=== PATIENT | male | born 1990 | race Caucasian/White ===

== ENCOUNTER 2018-01-27 11:43 | Emergency (ER) | payer SELFPAY ==
[2018-01-27 12:14] VITALS: BP 141/85
--- NOTE | 2018-01-27 12:36 | UC ---
Throat Pain/Nasal Zaheer HPI - HPI Summary HPI Summary: Pt c/o sore throat, chills, ZACARIAS, malaise, nausea and vomiting X 5 days. Pt does not have health insurance and is requesting to not have throat swab. Pt has positive history of mono. - History of Current Complaint Chief Complaint: UCRespiratory Stated Complaint: ST,COUGH,ZACARIAS Time Seen by Provider: 01/27/18 12:23 Hx Obtained From: Patient Onset/Duration: Sudden Onset, Lasting Days, Still Present, Worse Since - onset Severity: Severe Pain Intensity: 9 Associated Signs & Symptoms: Positive: Dysphagia - Epiglottits Risk Factors Epiglottis Risk Factors: Negative - Allergies/Home Medications Allergies/Adverse Reactions: Allergies Allergy/AdvReac Type Severity Reaction Status Date / Time No Known Allergies Allergy Verified 01/27/18 12:09 PMH/Surg Hx/FS Hx/Imm Hx Previously Healthy: Yes - Surgical History Surgical History: Yes Surgery Procedure, Year, and Place: b/l thumbs. appy. Left knee - Family History Known Family History: Positive: Cardiac Disease - Social History Occupation: Employed Full-time Lives: With Family Alcohol Use: None Substance Use Type: None Smoking Status (MU): Light Every Day Tobacco Smoker Type: Cigarettes Amount Used/How Often: 1-2 cigs/day Have You Smoked in the Last Year: Yes Review of Systems Constitutional: Chills, Fatigue Skin: Negative Eyes: Negative ENT: Sore Throat Respiratory: Negative Cardiovascular: Negative Gastrointestinal: Negative Genitourinary: Negative Motor: Negative Neurovascular: Negative Musculoskeletal: Myalgia Neurological: Headache Psychological: Negative Is Patient Immunocompromised?: No All Other Systems Reviewed And Are Negative: Yes Physical Exam Triage Information Reviewed: Yes Appearance: Ill-Appearing Vital Signs: Initial Vital Signs Temp 97.3 F 01/27/18 12:10 Pulse 85 01/27/18 12:10 Resp 16 01/27/18 12:10 BP 141/85 01/27/18 12:10 Pulse Ox 98 01/27/18 12:10 Vital Signs Reviewed: Yes Eye Exam: Normal ENT Exam: Other ENT: Positive: Tonsillar swelling, Tonsillar exudate Dental Exam: Normal Neck exam: Normal Respiratory Exam: Normal Cardiovascular Exam: Normal Musculoskeletal Exam: Normal Neurological Exam: Normal Psychological Exam: Normal Skin Exam: Normal Throat Pain/Nasal Course/Dx - Differential Dx/Diagnosis Differential Diagnosis/HQI/PQRI: Mononucleosis, Pharyngitis, Tonsillitis Provider Diagnoses: Tonsillitis Discharge - Sign-Out/Discharge Documenting (check all that apply): Discharge/Admit/Transfer - Discharge Plan Condition: Stable Disposition: HOME Prescriptions: Cephalexin CAP* [Keflex 500 CAP*] 500 mg PO Q6H #40 cap Ibuprofen TAB* [Motrin TAB* 800 MG] 800 mg PO Q8H PRN #30 tab PRN Reason: Pain Patient Education Materials: Tonsillitis (ED) Forms: *Work Release Referrals: [facility] [place] [facility] [Outside] No Primary Care Phys,NOPCP [Primary Care Provider] - Additional Instructions: For information on enrollment eligibility or to enroll in a health plan, visit the [employer] website and the [facility] website. Or call customer service at , or find an enrollment assistor. - Billing Disposition and Condition Condition: STABLE Disposition: HOME
[2018-01-27] MEDS ORDERED: Acetaminophen TAB* 325 MG PO ONE (12:56)
== END 2018-01-27 13:03 | disposition home or self-care (01) ==
LOC: UCCORT 11:43
DX: F17.210 Nicotine dependence, cigarettes, uncomplicated (principal); J03.90 Acute tonsillitis, unspecified
CPT/HCPCS: 99212; A9270-GY; G0463

== ENCOUNTER 2018-05-02 13:50 | Emergency (ER) | payer BC ==
[2018-05-02] MEDS ORDERED: Albuterol/Ipratropium NEB.SOL* Albuterol 2.5 MG/Ipratropium 0.5 MG 3 ML INH ONE ×2 (15:03→15:30)
--- NOTE | 2018-05-02 15:09 | UC ---
Respiratory Complaint HPI - HPI Summary HPI Summary: 27 year old male presents with 2 day history of shortness of breath and left chest discomfort. States developed URI symptoms approximately 1 1/2 weeks ago including nasal congestion, runny nose, and non-productive cough. 2 days ago cough became worse and more frequent, he became short of breath, and had sharp left sided chest discomfort with deep breaths and cough. Denies fever, chills, ear pain/fullness, sore throat, abdominal pain, nausea, or vomiting. - History of Current Complaint Chief Complaint: UCGeneralIllness Stated Complaint: CHEST CONGESTION Time Seen by Provider: 05/02/18 14:58 Hx Obtained From: Patient Onset/Duration: Gradual Onset Severity Initially: Mild Severity Currently: Moderate Pain Intensity: 8 Character: Cough: Nonproductive Aggravating Factors: Deep Breaths Alleviating Factors: Nothing Associated Signs And Symptoms: Positive: Dyspnea, Pleuritic Chest Pain, Wheezing , URI, Nasal Congestion. Negative: Fever, Chills, Hemoptysis, Dizziness, Calf Pain, Calf Swelling - Risk Factors Pulmonary Embolism Risk Factors: Negative Cardiac Risk Factors: Negative - Allergies/Home Medications Allergies/Adverse Reactions: Allergies Allergy/AdvReac Type Severity Reaction Status Date / Time No Known Allergies Allergy Verified 05/02/18 14:59 PMH/Surg Hx/FS Hx/Imm Hx - Additional Past Medical History Additional PMH: noncontributory Previously Healthy: Yes - Surgical History Surgical History: Yes Surgery Procedure, Year, and Place: b/l thumbs. appy. Left knee - Family History Known Family History: Positive: Cardiac Disease - Social History Occupation: Employed Full-time Lives: With Family Alcohol Use: Rare Substance Use Type: None Smoking Status (MU): Heavy Every Day Tobacco Smoker Type: Cigarettes Amount Used/How Often: 1 ppd Have You Smoked in the Last Year: Yes Review of Systems Constitutional: Negative Skin: Negative Eyes: Negative ENT: Nasal Discharge Respiratory: Shortness Of Breath, Cough, Other - pleuritic chest pain Cardiovascular: Negative Gastrointestinal: Negative Is Patient Immunocompromised?: No All Other Systems Reviewed And Are Negative: Yes Physical Exam Triage Information Reviewed: Yes Appearance: Well-Appearing, No Pain Distress, Well-Nourished Vital Signs: Initial Vital Signs Temp 98.2 F 05/02/18 14:54 Pulse 69 05/02/18 14:54 Resp 19 05/02/18 14:54 BP 139/84 05/02/18 14:54 Pulse Ox 100 05/02/18 14:54 Vital Signs Reviewed: Yes Eyes: Positive: Conjunctiva Clear ENT: Positive: Pharynx normal - post-nasal drip, Nasal congestion, Nasal drainage, Uvula midline. Negative: Tonsillar swelling, Tonsillar exudate Neck: Positive: Supple, Nontender, No Lymphadenopathy Respiratory: Positive: No respiratory distress, No accessory muscle use, Wheezing - diffuse bilateral expiratory. Negative: Plerual rub Cardiovascular: Positive: RRR, No Murmur, Pulses Normal, Brisk Capillary Refill Skin Exam: Normal UC Diagnostic Evaluation - Laboratory O2 Sat by Pulse Oximetry: 100 - Radiology Xray Interpretation: No Acute Changes - CXR Radiology Interpretation Completed By: ED Physician - Preliminary reading by myself, Radiologist Re-Evaluation - Re-Evaluation First Eval Re-Evaluation Time: 15:20 Change: Unchanged Comment: Patient states no improvement in SOB. Continues to have diffuse wheezes bilaterally. Will obtain CXR. Repeat DuoNeb. Start prednisone 40 mg PO. Second Eval Re-Evaluation Time: 15:55 Change: Improved - CXR negative for cardiopulmonary pathology. Patient currently finishing 2nd DuoNeb. States breathing easier. Diffuse bilateral wheezes although improving. Improved air exchange. Recheck VS. As long as VSS and patient feels breathing is improved will plan to start azithromycin and d/c patient home with albuterol inhaler with spacer to use PRN. I will provide prescriptions to finish course of azithromycin as well as 4 more days of prednisone 40 mg daily. I will refer to [facility] for follow up in 2-3 days. Respiratory Course/Dx - Course Course Of Treatment: 27 year old male presents with 2 day history of shortness of breath, left pleuritic chest pain, and cough. URI symptoms for 10 days. 1 PPD smoker. Diffuse wheezing on exam that did not respond to initial DuoNeb treatment. CXR negative for acute cardiopulmonary pathology. Patient was given oral prednisone 40 mg and 2nd DuoNeb treatment with improvement. Given first dose of azithromycin in clinic and dispensed an albuterol inhaler with spacer to use q4-6 hours as needed. Prescriptions sent to complete 5 day course of azithromycin and prednisone. Referral to [facility] for follow up in 2 days. Recommend smoking cessation. - Differential Dx/Diagnosis Provider Diagnoses: Acute Bronchitis, reactive airway disease not asthma Discharge - Sign-Out/Discharge Documenting (check all that apply): Patient Departure - Discharge Plan Condition: Stable Disposition: HOME Prescriptions: Azithromycin TAB* [Zithromax TAB (Z-BIJAL) 250 mg #6 tabs] 250 mg PO DAILY #4 tab predniSONE [Prednisone 20 MG TAB] 40 mg PO DAILY #8 tablet Patient Education Materials: How to Stop Smoking (ED), How to Use a Metered- Dose Inhaler (ED), Acute Bronchitis (ED), Reactive Airways Disease (ED) Referrals: Non Staff,Doctor [Primary Care Provider] - [facility] [Outside] - 2 Days (Recheck of reactive airway disease) Additional Instructions: You were given a dose of antibiotic called azithromycin, a steroid called prednisone, and breathing treatments in the clinic today to treat you for acute bronchitis with reactive airway disease. Continue azithromycin 250 mg 1 tab daily for 4 days starting 05/03/2018. Continue prednisone 40 mg (2 tabs) daily for 4 days starting 05/03/2018. Use the albuterol inhaler provided to you 2 puffs every 4-6 hours as needed for shortness of breath or wheezing. Be sure to review the handout on how to use a meter-dosed inhaler to maximize the benefit of this medication. I recommend you stop smoking as this is contributing to your symptoms. Follow up with [facility] in 2 days for recheck. Seek immediate medical attention in the emergency room if you develop fever greater than 100.5 F, have worsening shortness of breath despite using inhaler, worsening chest pain, or any worsening of symptoms. Per institutional requirements, I have reviewed the chart, however, I was not consulted specifically or made aware of this patient by the above midlevel provider. I did not personally evaluate, interact with , or disposition this patient. - Billing Disposition and Condition Condition: STABLE Disposition: Home
[2018-05-02] MEDS ORDERED: predniSONE TAB* 20 MG PO ONE (15:30)
--- NOTE | 2018-05-02 16:00 | RAD ---
INDICATION: Cough and shortness of breath. COMPARISON: There are no prior studies available for comparison. TECHNIQUE: Dual-energy PA and lateral views of the chest were obtained. FINDINGS: The heart is within normal limits in size. Mediastinal and hilar contours appear within normal limits. The lungs are clear. No pleural effusion is present. There is a pectus excavatum deformity. IMPRESSION: NO EVIDENCE FOR ACTIVE CARDIOPULMONARY DISEASE.
[2018-05-02] MEDS ORDERED: Albuterol HFA INHALER* 8 gm MDI INH PRN (16:09)
[2018-05-02 16:11] VITALS: BP 144/89
[2018-05-02] MEDS ORDERED: Azithromycin TAB* 250 MG PO ONE (16:14)
[2018-05-02] MEDS ORDERED: Albuterol HFA INHALER* 8 gm MDI INH ONE (16:21)
== END 2018-05-02 16:44 | disposition home or self-care (01) ==
LOC: UCCORT 13:50
DX: J20.9 Acute bronchitis, unspecified (principal); J70.9 Respiratory conditions due to unspecified external agent; F17.210 Nicotine dependence, cigarettes, uncomplicated
CPT/HCPCS: 71046; 99213; A9270-GY; G0463; J7512

== ENCOUNTER 2018-05-14 10:10 | Emergency (ER) | payer BC, OTHER ==
[2018-05-14 11:22] VITALS: BP 149/79
[2018-05-14] MEDS ORDERED: Ketorolac INJ* 60 MG/2 ML VIAL IV PUSH ONE (11:30)
--- NOTE | 2018-05-14 12:05 | RAD ---
HISTORY: fall from ladder injuring knee/leg and foot COMPARISONS: None VIEWS: 4 , Frontal, lateral, axial, and oblique views of the right knee FINDINGS: BONE DENSITY: Normal. BONES: There is a slightly impacted fracture of the medial tibial plateau. JOINTS: There is no arthropathy. There is a moderate suprapatellar joint effusion. ALIGNMENT: There is no dislocation. SOFT TISSUES: Unremarkable. OTHER FINDINGS: None. IMPRESSION: SLIGHTLY IMPACTED FRACTURE OF THE MEDIAL TIBIAL PLATEAU WITH ASSOCIATED JOINT EFFUSION.
--- NOTE | 2018-05-14 12:06 | RAD ---
HISTORY: fall from ladder injuring knee/leg and foot COMPARISONS: Right knee dated May 14, 2018 VIEWS: 2 , Frontal and lateral views of the right foreleg FINDINGS: BONE DENSITY: Normal. BONES: Again noted is a slightly impacted fracture of the medial tibial plateau. JOINTS: There is no arthropathy. ALIGNMENT: There is no dislocation. SOFT TISSUES: Unremarkable. OTHER FINDINGS: None. IMPRESSION: SLIGHTLY IMPACTED FRACTURE OF THE MEDIAL TIBIAL PLATEAU.
[2018-05-14] MEDS ORDERED: Ketorolac INJ* 60 MG/2 ML VIAL IM ONE (12:07)
--- NOTE | 2018-05-14 12:07 | RAD ---
HISTORY: fall from ladder injuring knee/leg and foot COMPARISONS: None VIEWS: 3 , Frontal, lateral, and oblique views of the right foot FINDINGS: BONE DENSITY: Normal. BONES: There is no displaced fracture. JOINTS: There is no arthropathy. ALIGNMENT: There is no dislocation. SOFT TISSUES: Unremarkable. OTHER FINDINGS: None. IMPRESSION: NO ACUTE OSSEOUS INJURY. IF SYMPTOMS PERSIST, RECOMMEND REPEAT IMAGING.
--- NOTE | 2018-05-14 12:33 | UC ---
Knee Pain HPI - History of Current Complaint Chief Complaint: UCLowerExtremity Stated Complaint: RIGHT KNEE INJURY Time Seen by Provider: 05/14/18 11:29 Hx Obtained From: Patient Onset/Duration: Sudden Onset, Lasting Hours Severity Currently: Severe Pain Intensity: 10 Character: Sharp, Aching Aggravating Factor(s): Movement, Weight Bearing Alleviating Factor(s): Rest, Position Associated Signs And Symptoms: Positive: Swelling Able to Bear Weight: No - Risk Factors Septic Arthritis Risk Factor: Negative Gout Risk Factor: Negative - Allergies/Home Medications Allergies/Adverse Reactions: Allergies Allergy/AdvReac Type Severity Reaction Status Date / Time No Known Allergies Allergy Verified 05/14/18 11:09 PMH/Surg Hx/FS Hx/Imm Hx Previously Healthy: Yes - Surgical History Surgical History: Yes Surgery Procedure, Year, and Place: Bilateral Thumb Reconstructions; Left Knee Arthroscopy for Torn Meniscus; Appendectomy - Family History Known Family History: Positive: Cardiac Disease - Social History Alcohol Use: Rare Substance Use Type: None Smoking Status (MU): Heavy Every Day Tobacco Smoker Type: Cigarettes Amount Used/How Often: 1 PPD Length of Time of Smoking/Using Tobacco: Since Age 20 Have You Smoked in the Last Year: Yes Review of Systems Constitutional: Negative Skin: Negative Eyes: Negative ENT: Negative Respiratory: Negative Cardiovascular: Negative Gastrointestinal: Negative Genitourinary: Negative Motor: Negative Neurovascular: Negative Musculoskeletal: Negative Neurological: Negative Psychological: Negative All Other Systems Reviewed And Are Negative: Yes Physical Exam Triage Information Reviewed: Yes Appearance: Well-Appearing, Well-Nourished, Pain Distress Vital Signs: Initial Vital Signs Temp 98.4 F 05/14/18 11:07 Pulse 66 05/14/18 11:07 Resp 14 05/14/18 11:07 BP 149/79 05/14/18 11:07 Pulse Ox 100 05/14/18 11:07 Vital Signs Reviewed: Yes Knee Pain Course/Dx - Course Course Of Treatment: xray shows tibial plateau fracture, discussed case with Dr. Kennedy to have short term f/u with Orthopedics in 3 days. Knee immovilizer and crutches given, percoset PRN for pain control. - Differential Dx/Diagnosis Provider Diagnoses: Elevated BP without history of HTN. Tibial plateau fracture Discharge - Sign-Out/Discharge Documenting (check all that apply): Patient Departure All imaging exams completed and their final reports reviewed: Yes - Discharge Plan Condition: Stable Disposition: HOME Patient Education Materials: Leg Fracture (ED), Narcotic-Analgesic/ Acetaminophen (By mouth), R.I.C.E. Treatment (ED) Referrals: No Primary Care Phys,NOPCP [Primary Care Provider] - [facility] [Outside] Dakota Parsons MD [Medical Doctor] - - Billing Disposition and Condition Condition: STABLE Disposition: Home
[2018-05-14] MEDS ORDERED: HYDROcodone/ACETAMIN 5-325 MG* 1 TAB PO ONE (12:39)
--- NOTE | 2018-05-14 20:33 | UC ---
Lower Extremity/Ankle HPI - HPI Summary HPI Summary: 27-year-old patient who complains of having sustained a fall yesterday while he was climbing up a ladder. He states he was on the third or fourth rung above the floor when he is right leg got entangled and went in between rungs. Patient 's states he fell on the floor along with the ladder. Patient states he was working out of town and was carried to the car since he could not bear any weight. States he has pain on right knee. The pain also goes down along right baer, right ankle and foot. Patient states he has not taken any pain medication. - History of Current Complaint Chief Complaint: UCLowerExtremity Stated Complaint: RIGHT KNEE INJURY Time Seen by Provider: 05/14/18 11:29 Hx Obtained From: Patient Onset/Duration: Sudden Onset, Lasting Hours Severity Currently: Severe Pain Intensity: 10 Pain Scale Used: 0-10 Numeric Aggravating Factor(s): Standing, Ambulation Alleviating Factor(s): Rest Able to Bear Weight: No - Risk Factors Gout Risk Factors: Negative DVT Risk Factors: Negative Septic Arthritis Risk Factor: Negative - Allergies/Home Medications Allergies/Adverse Reactions: Allergies Allergy/AdvReac Type Severity Reaction Status Date / Time No Known Allergies Allergy Verified 05/14/18 11:09 PMH/Surg Hx/FS Hx/Imm Hx Previously Healthy: Yes - Surgical History Surgical History: Yes Surgery Procedure, Year, and Place: Bilateral Thumb Reconstructions; Left Knee Arthroscopy for Torn Meniscus; Appendectomy - Family History Known Family History: Positive: Cardiac Disease - Social History Alcohol Use: Rare Substance Use Type: None Smoking Status (MU): Heavy Every Day Tobacco Smoker Type: Cigarettes Amount Used/How Often: 1 PPD Length of Time of Smoking/Using Tobacco: Since Age 20 Have You Smoked in the Last Year: Yes Review of Systems Constitutional: Negative Skin: Negative Eyes: Negative ENT: Negative Respiratory: Negative Cardiovascular: Negative Gastrointestinal: Negative Genitourinary: Negative Motor: Negative Neurovascular: Negative Musculoskeletal: Arthralgia, Myalgia Neurological: Negative Psychological: Negative All Other Systems Reviewed And Are Negative: Yes Physical Exam Triage Information Reviewed: Yes Appearance: Well-Appearing, Well-Nourished, Pain Distress Vital Signs: Initial Vital Signs Temp 98.4 F 05/14/18 11:07 Pulse 66 05/14/18 11:07 Resp 14 05/14/18 11:07 BP 149/79 05/14/18 11:07 Pulse Ox 100 05/14/18 11:07 Vital Signs Reviewed: Yes Eyes: Positive: Conjunctiva Clear ENT: Positive: Hearing grossly normal Neck: Positive: Supple Respiratory: Positive: Chest non-tender, Lungs clear, Normal breath sounds, No respiratory distress Cardiovascular: Positive: RRR, No Murmur, Pulses Normal, Brisk Capillary Refill Abdomen Description: Positive: Nontender Musculoskeletal: Positive: No Edema - Tenderness on palpation of the with noticeable knee effusion. Patient unable to extend or flex the ankle due to pain. No distal edema noted. Pedal Pulses are present. Capillary refill brisk. The foot is cold to touch. Calf is soft, popliteal effusion., Other: Lower Extremity Course/Dx - Course Course Of Treatment: xray shows tibial plateau fracture, discussed case with Dr. Kennedy to have short term f/u with Orthopedics in 3 days. Knee immovilizer and crutches given, percoset PRN for pain control. - Differential Dx/Diagnosis Provider Diagnoses: Tibial Plateau Fracture Discharge - Sign-Out/Discharge Documenting (check all that apply): Patient Departure All imaging exams completed and their final reports reviewed: Yes - Discharge Plan Condition: Stable Disposition: HOME Prescriptions: HYDROcodone/ACETAMIN 5-325 MG* [[place] 5-325 TAB*] 1 tab PO Q6H PRN 4 Days #16 tab MDD 4 PRN Reason: Pain Patient Education Materials: Narcotic-Analgesic/Acetaminophen (By mouth), Leg Fracture (ED), R.I.C.E. Treatment (ED) Forms: *Work Release Referrals: [facility] [place] [facility] [Outside] Dakota Parsons MD [Medical Doctor] - No Primary Care Phys,NOPCP [Primary Care Provider] - - Billing Disposition and Condition Condition: STABLE Disposition: Home
--- NOTE | 2018-05-15 20:07 | UC ---
- Progress Note Progress Note: follow up phone call placed, patient states he is still in pain but medication has helped control it. He denies calf swelling or tenderness and states he can flex and extend his right foot more. He has been able to keep the knee immovilizer in place. Instructed to f/u at orthopedic clinic on Thursday as per discussion during his discharge from the . If there is increase in pain, numbness or increased swelling of Lower extremity advised to go to the ER> Discharge - Sign-Out/Discharge Documenting (check all that apply): Post-Discharge Follow Up All imaging exams completed and their final reports reviewed: Yes - Discharge Plan Condition: Stable Disposition: HOME Prescriptions: HYDROcodone/ACETAMIN 5-325 MG* [[place] 5-325 TAB*] 1 tab PO Q6H PRN 4 Days #16 tab MDD 4 PRN Reason: Pain Patient Education Materials: Narcotic-Analgesic/Acetaminophen (By mouth), Leg Fracture (ED), R.I.C.E. Treatment (ED) Forms: *Work Release Referrals: [facility] [place] [facility] [Outside] Dakota Parsons MD [Medical Doctor] - No Primary Care Phys,NOPCP [Primary Care Provider] - - Billing Disposition and Condition Condition: STABLE Disposition: Home
== END 2018-05-14 13:00 | disposition home or self-care (01) ==
LOC: UCCORT 10:10
DX: S82.141A Displaced bicondylar fracture of right tibia, initial encounter for closed fracture (principal); W11.XXXA Fall on and from ladder, initial encounter; Y93.9 Activity, unspecified; Y92.9 Unspecified place or not applicable; Y99.0 Civilian activity done for income or pay; R03.0 Elevated blood-pressure reading, without diagnosis of hypertension; F17.210 Nicotine dependence, cigarettes, uncomplicated
CPT/HCPCS: 96372; 99213; G0463; J1885